=== PATIENT | male | born 1950 | race Caucasian/White ===

== ENCOUNTER 2019-02-24 00:19 | Day surgery (SDC) | payer MEDICARE, OTHER ==
[2019-02-24] VITALS (7 sets, daily range): BP systolic 112–146; BP diastolic 67–91
[~2019-02-24] VITALS: Ht 193 cm; Wt 130.6 kg
[~2019-02-24 00:19] MED LIST: ASPI-1471 PO; ASPIRIN; CEP500 PO; MAXIDE; MULT1CAP59 PO; QUIN10TA24 PO; QUINAPRIL; TRIA-20 PO
[2019-02-24] MEDS ORDERED: LIDOCAINE/SOD BICARB 8.4% SYR ID ONE (07:25)
[2019-02-24] MEDS ORDERED: NORMOSOL R SOLN(*) 1000 ML BAG 1,000 ML IV PRN (07:25)
[2019-02-24] MEDS ORDERED: LIDOCAINE MPF 1% 5 ML VIAL ONE (07:31)
[2019-02-24] MEDS ORDERED: PROPOFOL EMUL(*) 10MG/ML 20 ML 60 ML ONE (07:31)
--- NOTE | 2019-02-24 09:04 | Short(Outpt) Discharge Summary ---
Discharge Summary Reason for Hosp/Final Diag: (1) Colon cancer screening Status: Chronic Hospital Course & Plan: Colonoscopy completed without problems, normal. Departure Discharge to: Home, Self Care Discharge Instructions Home Meds Reported Medications Multivitamin (MULTIVITAMINS) 1 Each Capsule, 1 EACH PO DAILY, CAPSULE 02/15/19 Aspirin (ASPIR 81) 81 Mg Tablet.dr, 81 MG PO QDAY, TAB 02/15/19 Triamterene/Hydrochlorothiazid (TRIAMTERENE-HCTZ 37.5-25 MG TB) 1 Each Tablet, 1 EACH PO DAILY 02/15/19 Quinapril Hcl (Accupril) 10 Mg Tablet, 10 MG PO QDAY, 0 Refills 10/19/09 Diet: Regular Activity: As Tolerated Special Instructions: Your colonoscopy was completed without problems and your prep was good. I didn't find any polyps, cancer, or other problems in your colon. I recommend that your next colonoscopy be in 10 years. KUN BERRIOS MD Feb 24, 2019 09:04
== END 2019-02-24 10:12 | disposition home or self-care (01) ==
LOC: OR 00:19
PROVIDERS: ATTEND Surgery
DX: Z12.11 Encounter for screening for malignant neoplasm of colon (principal)
CPT/HCPCS: 00812; G0121; J2001; J2704